=== PATIENT | male | born 1990 ===

== ENCOUNTER 2023-11-27 11:04 | Emergency (ER) | payer SELFPAY ==
[~2023-11-27] VITALS: Ht 170.2 cm; Wt 83.6 kg
[2023-11-27 11:18] VITALS: TEMP 97.9
[2023-11-27 12:51] VITALS: BP 159/94; PULSE 50
== END 2023-11-27 12:51 | disposition home or self-care (01) ==
LOC: COL.ER 11:04
DX: S93.401A Sprain of unspecified ligament of right ankle, initial encounter (principal); X50.1XXA Overexertion from prolonged static or awkward postures, initial encounter